=== PATIENT | female | born 1980 | race African-American/Black ===

== ENCOUNTER 2019-05-25 04:37 | Emergency (ER) | payer SELFPAY ==
[~2019-05-25] VITALS: Ht 170.2 cm; Wt 106.6 kg
[~2019-05-25 04:37] MED LIST: HYDROCODONE/APAP 10-325 MG TABLET ONE; ONDANSETRON HCL 4 MG TABLET ONE
[2019-05-25] MEDS ORDERED: SODIUM BICARBONATE 4.2 % (NEUT) 5 ML VIAL TP ONE (05:00)
[2019-05-25] MEDS ORDERED: HYDROCODONE/APAP 10-325 MG TABLET PO ONE (05:00)
[2019-05-25] MEDS ORDERED: TDAP DIPH,PERTUSS,TET VAC/PF 0.5 ML DISP.SYRIN IM ONE ×2 (05:00→05:47)
[2019-05-25] MEDS ORDERED: HYDROMORPHONE 1 MG/1 ML DISP.SYRIN IM ONE (05:00)
[2019-05-25] MEDS ORDERED: ONDANSETRON ODT 4 MG TAB.RAPDIS SL ONE (05:00)
[2019-05-25] MEDS ORDERED: HYDROMORPHONE 2 MG/1 ML DISP.SYRIN ONE (05:00)
[2019-05-25] MEDS ORDERED: CEFTRIAXONE 1 G VIAL IM ONE (05:00)
[2019-05-25] MEDS ORDERED: LIDOCAINE 1%-EPI 1:100,000 20 ML VIAL IJ ONE (05:00)
--- NOTE | 2019-05-25 05:00 | NUR ---
Pt screaming yelling in pain. Dr. Jones made aware.
[2019-05-25] MEDS ORDERED: ONDANSETRON HCL 4 MG TABLET ONE (05:18)
[2019-05-25] MEDS ORDERED: HYDROCODONE/APAP 10-325 MG TABLET ONE (05:18)
[2019-05-25] MEDS ORDERED: CEFTRIAXONE 1 G VIAL ONE (05:47)
--- NOTE | 2019-05-25 05:55 | NUR ---
Pt went down to radiology dept for CT scan. waiver signed.
[2019-05-25] MEDS ORDERED: DIAZEPAM 2 MG TABLET PO ONE (06:15)
[2019-05-25] MEDS ORDERED: ALBUTEROL SULFATE 2.5 MG/3 ML NEBU NEB ONE (06:15)
[2019-05-25] MEDS ORDERED: ALBUTEROL SULFATE 2.5 MG/3 ML NEBU ONE (06:16)
--- NOTE | 2019-05-25 06:26 | NUR ---
Pt is more comfortable. Receiving breathing tx at this time. Pending results of CT scan.
[2019-05-25] MEDS ORDERED: DIAZEPAM 2 MG TABLET ONE (06:29)
--- NOTE | 2019-05-25 06:51 | NUR ---
Patient discharged to home in stable conditon. Written and verbal after care instructions given. Patient verbalizes understanding of instructions. Pt left ER in stable condition via wheelchair accompanied by who will drive pt home. Pt appears in no apparent distress. Vital signs stable. Respirations even + unlabored.
[2019-05-25 06:54] VITALS: BP 135/69
== END 2019-05-25 06:55 | disposition home or self-care (01) ==
LOC: ER 04:43
DX: S31.139A Puncture wound of abdominal wall without foreign body, unspecified quadrant without penetration into peritoneal cavity, initial encounter (principal); S31.119A Laceration without foreign body of abdominal wall, unspecified quadrant without penetration into peritoneal cavity, initial encounter; F17.200 Nicotine dependence, unspecified, uncomplicated; W01.198A Fall on same level from slipping, tripping and stumbling with subsequent striking against other object, initial encounter; Y93.89 Activity, other specified; Y92.89 Other specified places as the place of occurrence of the external cause; Y99.8 Other external cause status
CPT/HCPCS: 12032; 74176; 90471; 90715; 94640; 96372 ×2; 99284; J0696; J1170; J3490 ×2; A4217; A4663; Q0162

== ENCOUNTER 2019-05-25 08:13 | Emergency (ER) | payer SELFPAY ==
[~2019-05-25] VITALS: Ht 170.2 cm; Wt 106.6 kg
--- NOTE | 2019-05-25 08:15 | NUR ---
Admit a 39 yo female pt via w/c, accompanied by with c/o bleeding on the previously drained abdomenal wound in this ER tunnel man. Incission appears clean and intact. Pt is awake, alert and oriented x3.
--- NOTE | 2019-05-25 08:35 | NUR ---
Seen and examined by Dr العلي. Spoken with the . Cleaned up the wound and dressing applied. Wound care education and discharge instruction teaching given to the pt. and with good understanding. Pt c/o pain level 4 but tolerable. Discharged via w/c accompanied by . Condition is stable.
[2019-05-25 08:59] VITALS: BP 125/80
== END 2019-05-25 08:35 | disposition home or self-care (01) ==
LOC: ER 08:13
DX: S31.119D Laceration without foreign body of abdominal wall, unspecified quadrant without penetration into peritoneal cavity, subsequent encounter (principal); F17.200 Nicotine dependence, unspecified, uncomplicated; X58.XXXD Exposure to other specified factors, subsequent encounter
CPT/HCPCS: A4663

== ENCOUNTER 2019-05-31 15:39 | Emergency (ER) | payer SELFPAY ==
[~2019-05-31] VITALS: Ht 170.2 cm; Wt 106.6 kg
[2019-05-31] MEDS ORDERED: NEOMY/BACITRA/POLYMYXIN B OINT UD PACKET TP ONE ×2 (17:45→17:47)
--- NOTE | 2019-05-31 18:00 | NUR ---
PATIENT WAS SEEN BY . WOUND CULTURE OBTAINED THEN WAS CLEANSED AND DRESSED. PATIENT TO RETURN TO ER FOR WOUND CHECK IN 2 DAYS. DC, RX AND FOLLOW UP INSTRUCTIONS GIVEN AND EXPLAINED TO PATIENT WHO STATES SHE UNDERSTANDS ALL INSTRUCTIONS
== END 2019-05-31 18:17 | disposition home or self-care (01) ==
LOC: ER 15:42
DX: S31.119D Laceration without foreign body of abdominal wall, unspecified quadrant without penetration into peritoneal cavity, subsequent encounter (principal); F17.200 Nicotine dependence, unspecified, uncomplicated; X58.XXXD Exposure to other specified factors, subsequent encounter
CPT/HCPCS: 87070; 87077; A4663

== ENCOUNTER 2019-06-04 18:05 | Emergency (ER) | payer MEDICAID ==
[~2019-06-04] VITALS: Ht 170.2 cm; Wt 77.1 kg
[2019-06-04] MEDS ORDERED: SULF1TAB48 PO (18:17)
[2019-06-04] MEDS ORDERED: CEPH250S PO (18:17)
--- NOTE | 2019-06-04 18:23 | NUR ---
39 years old female alert, oriented x4 walking to er for right abdominal fold wound check, no odor small serous drainage noted denies chills fever, pain.
[2019-06-04] MEDS ORDERED: MUPIROCIN 2% OINT 22 GM TUBE ONE (18:55)
[2019-06-04] MEDS ORDERED: MUPIROCIN 2% OINT 22 GM TUBE TP ONE (19:00)
--- NOTE | 2019-06-04 19:05 | NUR ---
wound clean with normal saline tender to touch, bactroban applied, d/c home with instructions after care reviewed understood, prescription given.
== END 2019-06-04 19:07 | disposition home or self-care (01) ==
LOC: ER 18:05
DX: S31.119D Laceration without foreign body of abdominal wall, unspecified quadrant without penetration into peritoneal cavity, subsequent encounter (principal); T81.30XA Disruption of wound, unspecified, initial encounter; J45.909 Unspecified asthma, uncomplicated; F17.200 Nicotine dependence, unspecified, uncomplicated; Z79.899 Other long term (current) drug therapy; X58.XXXD Exposure to other specified factors, subsequent encounter
CPT/HCPCS: A4663

== ENCOUNTER 2019-06-05 22:05 | Emergency (ER) | payer MEDICAID ==
[~2019-06-05] VITALS: Ht 170.2 cm; Wt 79.4 kg
[~2019-06-05 22:05] MED LIST changes: +CEPH250S PO; -HYDROCODONE/APAP 10-325 MG TABLET ONE; -ONDANSETRON HCL 4 MG TABLET ONE; +SULF1TAB48 PO
--- NOTE | 2019-06-05 22:20 | NUR ---
Patient here for abdominal wound check.
--- NOTE | 2019-06-05 22:30 | NUR ---
Dr. Metcalf on bedside for MSE.
[2019-06-05] MEDS ORDERED: MUPIROCIN 2% OINT 22 GM TUBE ONE (22:38)
[2019-06-05] MEDS ORDERED: MUPIROCIN 2% OINT 22 GM TUBE TP ONE (22:45)
--- NOTE | 2019-06-05 22:48 | NUR ---
Patient discharged to home in stable conditon. Written and verbal after care instructions given. Patient verbalizes understanding of instructions. Pt ambulated out of the ER with steady gait. All belongings with pt.
[2019-06-05 22:49] VITALS: BP 108/56
== END 2019-06-05 22:49 | disposition home or self-care (01) ==
LOC: ER 22:07
DX: S31.119D Laceration without foreign body of abdominal wall, unspecified quadrant without penetration into peritoneal cavity, subsequent encounter (principal); J45.909 Unspecified asthma, uncomplicated; F17.200 Nicotine dependence, unspecified, uncomplicated; Z79.2 Long term (current) use of antibiotics; Z79.899 Other long term (current) drug therapy; X58.XXXD Exposure to other specified factors, subsequent encounter
CPT/HCPCS: A4217; A4663

== ENCOUNTER 2019-06-08 12:40 | Emergency (ER) | payer MEDICAID ==
[~2019-06-08] VITALS: Ht 170.2 cm; Wt 79.4 kg
--- NOTE | 2019-06-08 13:23 | NUR ---
PATIENT WAS SEEN BY MD, SHE REMOVED THE SUTURES. STERILE DRESSING APPLIED. DC AND FOLLOW UP INSTRUCTIONS GIVEN AND EXPLAINED TO PATIENT WHO STATES SHE UNDERSTANDS ALL INSTRUCTIONS.
== END 2019-06-08 13:26 | disposition home or self-care (01) ==
LOC: ER 12:40
DX: T81.33XA Disruption of traumatic injury wound repair, initial encounter (principal); J45.909 Unspecified asthma, uncomplicated; F17.200 Nicotine dependence, unspecified, uncomplicated; Z79.2 Long term (current) use of antibiotics; Z79.899 Other long term (current) drug therapy
CPT/HCPCS: A4663

== ENCOUNTER 2020-05-09 18:24 | Emergency (ER) | payer SELFPAY ==
[~2020-05-09] VITALS: Ht 170.2 cm; Wt 108.9 kg
--- NOTE | 2020-05-09 18:30 | NUR ---
Paged dr Wilkins.
--- NOTE | 2020-05-09 18:45 | NUR ---
Patient was seen by Dr Metcalf
--- NOTE | 2020-05-09 19:03 | NUR ---
hand off report given to Naveen QUIÑONES
[2020-05-09] MEDS ORDERED: CEFTRIAXONE 1 G in IV DEXTROSE 5% 50 ML IV ONE (19:15)
[2020-05-09] MEDS ORDERED: VANCOMYCIN 1G/D5W 200 ML PIGGYBACK IV ONE (19:15)
[2020-05-09] MEDS ORDERED: VANCOMYCIN IV 200 ML ONE (19:16)
[2020-05-09] MEDS ORDERED: CEFTRIAXONE /D5W 50ML IVPB **ER PYXIS IV ONE (19:17)
[2020-05-09] MEDS ORDERED: MUPIROCIN 2% OINT 22 GM TUBE ONE (21:29)
[2020-05-09] MEDS ORDERED: MUPIROCIN 2% OINT 22 GM TUBE TP ONE (21:30)
--- NOTE | 2020-05-09 22:15 | NUR ---
Changed piccline dressing as per protocol as patient requested.
--- NOTE | 2020-05-09 22:37 | NUR ---
Patient discharged to home in stable condition. Written and verbal after care instructions given. Patient verbalizes understanding of instructions. Stressed follow up or return to ER for worsening s/s.
[2020-05-09 22:39] VITALS: BP 140/77
== END 2020-05-09 22:40 | disposition home or self-care (01) ==
LOC: ER 18:24
DX: L08.9 Local infection of the skin and subcutaneous tissue, unspecified (principal); L97.519 Non-pressure chronic ulcer of other part of right foot with unspecified severity; J45.909 Unspecified asthma, uncomplicated; Z98.84 Bariatric surgery status
CPT/HCPCS: 87070; 96365; 96366; 96367; 99284; J0696; J3370; A4663

== ENCOUNTER 2025-06-07 00:38 | Inpatient (IN) | payer BC ==
[~2025-06-07] VITALS: Ht 165.1 cm; Wt 114.8 kg
[2025-06-07] VITALS (40 sets, daily range): BP systolic 75–177; BP diastolic 47–114; TEMP 97.3–98.6; O2SAT 75–100
[2025-06-07] MEDS: ALBUTEROL SULFATE 2.5 MG/3 ML NEBU NEB ONE ×4 (00:45→11:04)
[2025-06-07] MEDS ORDERED: ALBUTEROL SULFATE 2.5 MG/3 ML NEBU ONE ×2 (00:50→02:51)
[2025-06-07] MEDS: IPRATROPIUM BROMIDE 0.5 MG/2.5 ML NEBU NEB ONE ×2 (00:50→11:03)
[2025-06-07] MEDS ORDERED: IPRATROPIUM BROMIDE 0.5 MG/2.5 ML NEBU ONE ×2 (00:50→02:52)
[2025-06-07 00:53] LABS: PLATELET COUNT (AUTO) 251 K/uL (179-408); RED BLOOD CELL COUNT(AUTO) 3.88 MIL/uL (3.63-4.92); RED CELL DISTRIBUTION WIDTH 17.8 % (12.3-17.7); WHITE BLOOD COUNT (AUTO) 11.5 K/uL (3.8-11.8)
[2025-06-07] MEDS ORDERED: MAGNESIUM SULFATE/D5W 200 ML ONE (00:55)
[2025-06-07] MEDS: MAGNESIUM SULFATE 2 GM in IV DEXTROSE 5% 100 ML IV ONE (00:58)
[2025-06-07 01:00] LABS: CREATININE 0.6 mg/dL (0.6-1.3); SODIUM SERUM 142 mmol/L (136-145); UREA NITROGEN, BLOOD 12 mg/dL (7-18)
[2025-06-07] MEDS: IV NORMAL SALINE 1000 ML BAG IV ONE (01:02)
[2025-06-07 01:06] LABS: ASPARTATE AMINOTRANSFERASE 11 U/L (15-37); TOTAL PROTEIN, SERUM 8.2 g/dL (6.4-8.2)
[2025-06-07] MEDS ORDERED: EPINEPHRINE 1:10,000 1 MG/10 ML DISP.SYRIN ONE ×2 (01:06→03:43)
[2025-06-07] MEDS: EPINEPHRINE 1 MG/1 ML 30 ML VIAL IM ONE ×2 (01:15→04:28)
[2025-06-07] MEDS ORDERED: ALBU8.5H8 IH (02:05)
[2025-06-07] MEDS ORDERED: REMEDY ESSENTIAL ZINC PASTE 113 GM TP PRN (02:30)
[2025-06-07] MEDS ORDERED: MAGNESIUM HYDROXIDE 30 ML LIQUID UDC PO PRN (02:30)
[2025-06-07] MEDS ORDERED: POTASSIUM CHLORIDE 20 MEQ TAB.PRT.SR ONE (02:32)
[2025-06-07] MEDS: POTASSIUM CHLORIDE 20 MEQ TAB.PRT.SR PO ONE (02:36)
[2025-06-07] MEDS: IPRATROPIUM BROMIDE 0.5 MG/2.5 ML NEBU NEB PRN (02:44)
[2025-06-07] MEDS ORDERED: MAGNESIUM SULFATE/D5W 100 ML ONE (03:43)
[2025-06-07] MEDS ORDERED: DEXAMETHASONE SOD PHOSPHATE 10 MG INJ ONE (03:43)
[2025-06-07] MEDS: MAGNESIUM SULFATE/D5W 100 ML IV ONE (03:48)
[2025-06-07] MEDS: DEXAMETHASONE SOD PHOSPHATE 4 MG INJ IV ONE (03:48)
[2025-06-07] MEDS ORDERED: ROCURONIUM BROMIDE 50 MG/5 ML VIAL ONE (04:15)
[2025-06-07] MEDS ORDERED: ETOMIDATE 20 MG/10 ML VIAL ONE (04:15)
[2025-06-07] MEDS ORDERED: EPINEPHRINE-PF 1:1000 1 MG/ML AMPUL/VIAL ONE (04:19)
[2025-06-07 05:25] LABS: *URINE HCG, QUAL NEGATIVE (NEGATIVE)
[2025-06-07] MEDS ORDERED: DOSING PER PHARMACY-ENOXAPARIN XX PRN (06:15)
[2025-06-07 06:21] LABS: PLATELET COUNT (AUTO) 243 K/uL (179-408); RED BLOOD CELL COUNT(AUTO) 3.83 MIL/uL (3.63-4.92); RED CELL DISTRIBUTION WIDTH 17.6 % (12.3-17.7); WHITE BLOOD COUNT (AUTO) 10.8 K/uL (3.8-11.8)
[2025-06-07] MEDS ORDERED: ENOXAPARIN SODIUM 120 MG/0.8 ML SYRINGE SQ ONE (06:30)
[2025-06-07 06:33] LABS: CREATININE 0.7 mg/dL (0.6-1.3); SODIUM SERUM 140.0 mmol/L (136-145); UREA NITROGEN, BLOOD 12.0 mg/dL (7-18)
[2025-06-07] MEDS: PANTOPRAZOLE SODIUM 40 MG TABLET.DR PO SCH (07:28)
[2025-06-07] MEDS: LEVALBUTEROL HCL NEB 0.63 MG/3 ML NEBU NEB SCH (07:30)
[2025-06-07] MEDS: IPRATROPIUM BROMIDE 0.5 MG/2.5 ML NEBU NEB SCH (07:31)
[2025-06-07] MEDS: ACETAMINOPHEN 500 MG TABLET PO ONE (08:05)
[2025-06-07] MEDS: POTASSIUM CHLORIDE 50 ML IV SCH (08:22)
[2025-06-07] MEDS: ENOXAPARIN SODIUM 120 MG/0.8 ML SYRINGE SQ SCH (08:30)
[2025-06-07] MEDS ORDERED: ENOXAPARIN SODIUM 120 MG/0.8 ML SYRINGE SQ SCH (09:00)
[2025-06-07] MEDS ORDERED: MAGNESIUM SULFATE/D5W 100 ML IV SCH (10:30)
[2025-06-07] MEDS: KETAMINE HCL 500 MG/10 ML INJ IV ONE (10:51)
[2025-06-07] MEDS: PROPOFOL 100 ML IV PRN ×2 (11:13→12:29)
[2025-06-07] MEDS ORDERED: NOREPINEPHRINE 8MG/NS 250ML 250 ML IV PRN (11:15)
[2025-06-07] MEDS ORDERED: PHENYLEPHRINE IV 50 MG in IV NORMAL SALINE 245 ML IV PRN (11:15)
[2025-06-07] MEDS: PROPOFOL 100 ML ONE (11:17)
[2025-06-07 11:29] LABS: ABG BASE EXCESS -0.7 mmol/L (-2.0-3.0); ABG HCO3 29.1 mmol/L (21.0-28.0); ABG PCO2 74.9 mmHg (32.0-45.0); ABG PH 7.207 (7.350-7.450); ABG PO2 92.9 mmHg (83.0-108.0); ABG SITE RIGHT RADIAL; ABG TOTAL HEMOGLOBIN 13.3 G/dL (12.0-16.0); AaDO2 95.1 mmHg; FIO2 60.0 %; SET RATE, BG 20.0
[2025-06-07 11:29] LABS: ABG BASE EXCESS -0.4 mmol/L (-2.0-3.0); ABG HCO3 27.1 mmol/L (21.0-28.0); ABG PCO2 57.4 mmHg (32.0-45.0); ABG PH 7.292 (7.350-7.450); ABG PO2 58.2 mmHg (83.0-108.0); ABG SITE LEFT RADIAL; ABG TOTAL HEMOGLOBIN 12.5 G/dL (12.0-16.0); AaDO2 86.7 mmHg; FIO2 44.0 %
[2025-06-07 11:29] LABS: FIO2 60.0 %
[2025-06-07] MEDS: IV NS 1000 ML 1,000 ML IV PRN (11:46)
[2025-06-07] MEDS: VANCOMYCIN IV 1,000 MG in IV DEXTROSE 5% 250 ML IV SCH (11:47)
[2025-06-07] MEDS ORDERED: MIDAZOLAM HCL 50 MG in IV NORMAL SALINE 40 ML IV PRN (12:30)
[2025-06-07 13:03] LABS: ABG BASE EXCESS -2.6 mmol/L (-2.0-3.0); ABG HCO3 28.1 mmol/L (21.0-28.0); ABG PCO2 84.3 mmHg (32.0-45.0); ABG PH 7.141 (7.350-7.450); ABG PO2 80.8 mmHg (83.0-108.0); ABG SITE RIGHT RADIAL; ABG TOTAL HEMOGLOBIN 12.1 G/dL (12.0-16.0); AaDO2 91.5 mmHg; PEEP,BG 5.0 cmH20; SET RATE, BG 24.0; VT, ABG 500 mL
[2025-06-07] MEDS: MIDAZOLAM HCL 50 MG in IV NORMAL SALINE 40 ML IV PRN (13:20)
[2025-06-07] MEDS ORDERED: FLUT1BLS6 IH (14:22)
[2025-06-07] MEDS: PANTOPRAZOLE SODIUM 40 MG VIAL IV SCH (20:28)
[2025-06-07 22:21] LABS: ABG BASE EXCESS -2.5 mmol/L (-2.0-3.0); ABG HCO3 26.3 mmol/L (21.0-28.0); ABG PCO2 64.7 mmHg (32.0-45.0); ABG PH 7.227 (7.350-7.450); ABG PO2 142.3 mmHg (83.0-108.0); ABG SITE LEFT RADIAL; ABG TOTAL HEMOGLOBIN 12.9 G/dL (12.0-16.0); AaDO2 98.3 mmHg; FIO2 60.0 %; PEEP,BG 5.0 cmH20; SET RATE, BG 28.0; VT, ABG 400 mL
[2025-06-08] VITALS (48 sets, daily range): BP systolic 128–175; BP diastolic 62–111; TEMP 97.5–100.6; O2SAT 93–100
[2025-06-08 05:05] LABS: PLATELET COUNT (AUTO) 241 K/uL (179-408); RED BLOOD CELL COUNT(AUTO) 3.87 MIL/uL (3.63-4.92); RED CELL DISTRIBUTION WIDTH 18.0 % (12.3-17.7); WHITE BLOOD COUNT (AUTO) 17.4 K/uL (3.8-11.8)
[2025-06-08 05:20] LABS: ASPARTATE AMINOTRANSFERASE 24 U/L (15-37); CREATININE 0.9 mg/dL (0.6-1.3); SODIUM SERUM 134 mmol/L (136-145); TOTAL PROTEIN, SERUM 7.7 g/dL (6.4-8.2); UREA NITROGEN, BLOOD 22 mg/dL (7-18)
[2025-06-08 05:45] LABS: ABG BASE EXCESS 0.5 mmol/L (-2.0-3.0); ABG HCO3 28.0 mmol/L (21.0-28.0); ABG PCO2 58.2 mmHg (32.0-45.0); ABG PH 7.300 (7.350-7.450); ABG PO2 119.0 mmHg (83.0-108.0); ABG SITE RIGHT RADIAL; ABG TOTAL HEMOGLOBIN 12.8 G/dL (12.0-16.0); AaDO2 97.9 mmHg; FIO2 50.0 %; PEEP,BG 5.0 cmH20; SET RATE, BG 28.0; VT, ABG 450 mL
[2025-06-08 05:56] LABS: LYMPHOCYTES % (MANUAL) 9 % (20-40); MONOCYTES % (MANUAL) 3 % (2-10); NEUTROPHILS % (MANUAL) 88 % (42-75); PLATELET ESTIMATE ADEQUATE
[2025-06-08] MEDS ORDERED: PANTOPRAZOLE SODIUM 40 MG VIAL IV SCH (09:00)
[2025-06-08] MEDS: ONDANSETRON 4 MG/2 ML VIAL IV PRN (12:32)
[2025-06-08] MEDS: METOPROLOL TARTRATE 5 MG/5 ML VIAL IVP ONE ×2 (12:44→17:02)
[2025-06-08] MEDS: VANCOMYCIN IV 1,000 MG in IV DEXTROSE 5% 250 ML IV SCH (13:00)
[2025-06-08] MEDS: METRONIDAZOLE 500 MG/NS 100ML 500 MG in PREMIXED 1 EACH IV SCH (14:02)
[2025-06-08] MEDS: ACETAMINOPHEN 650 MG SUPP.RECT RC PRN (14:36)
[2025-06-08] MEDS: METOCLOPRAMIDE HCL 10 MG/2 ML VIAL IV SCH (17:01)
[2025-06-08] MEDS: PANTOPRAZOLE SODIUM 40 MG VIAL IV SCH (21:07)
[2025-06-08] MEDS: CEFEPIME (MAXEPIME) 1 G in IV DEXTROSE 5% 50 ML IV SCH (21:08)
[2025-06-09] VITALS (47 sets, daily range): BP systolic 117–166; BP diastolic 58–105; TEMP 98.5–100.2; O2SAT 89–100
[2025-06-09 04:47] LABS: PLATELET COUNT (AUTO) 238 K/uL (179-408); RED BLOOD CELL COUNT(AUTO) 3.91 MIL/uL (3.63-4.92); RED CELL DISTRIBUTION WIDTH 18.4 % (12.3-17.7); WHITE BLOOD COUNT (AUTO) 18.7 K/uL (3.8-11.8)
[2025-06-09 04:52] LABS: CREATININE 0.9 mg/dL (0.6-1.3); SODIUM SERUM 131.0 mmol/L (136-145); UREA NITROGEN, BLOOD 25.0 mg/dL (7-18)
[2025-06-09 04:58] LABS: ASPARTATE AMINOTRANSFERASE 17 U/L (15-37); TOTAL PROTEIN, SERUM 7.4 g/dL (6.4-8.2)
[2025-06-09 05:30] LABS: ABG BASE EXCESS 2.6 mmol/L (-2.0-3.0); ABG HCO3 28.8 mmol/L (21.0-28.0); ABG PCO2 51.5 mmHg (32.0-45.0); ABG PH 7.366 (7.350-7.450); ABG PO2 94.9 mmHg (83.0-108.0); ABG SITE RIGHT RADIAL; ABG TOTAL HEMOGLOBIN 13.1 G/dL (12.0-16.0); AaDO2 96.9 mmHg; FIO2 50.0 %; PEEP,BG 5.0 cmH20; SET RATE, BG 28.0; VT, ABG 450 mL
[2025-06-09] MEDS ORDERED: ENOXAPARIN SODIUM 40 MG/0.4 ML DISP.SYRIN SQ SCH (09:00)
[2025-06-09] MEDS: FENTANYL CITRATE/PF 1,000 MCG in IV NORMAL SALINE 80 ML IV PRN (10:28)
[2025-06-09 10:43] LABS: *BILIRUBIN,URIN NEGATIVE (NEGATIVE); *BLOOD, URINE 3+ (NEGATIVE); *COLOR,URINE YELLOW (YELLOW); *KETONES,URINE TRACE (NEGATIVE); *PROTEIN,URINE 1+ (NEGATIVE); *UROBILINOGEN,URINE 0.2 E.U./dl (NORMAL); LEUKOCYTE ESTERASE ,URINE NEGATIVE (NEGATIVE); NITRITE, URINE NEGATIVE (NEGATIVE); UGLUCOSE NEGATIVE (NEGATIVE)
[2025-06-09 10:44] LABS: *CLARITY,URINE SLIGHTLY HAZY (CLEAR)
[2025-06-09 10:45] LABS: SQUAMOUS EPITHELIAL CELL,UR MODERATE /HPF (NONE SEEN); URINE AMORPHOUS URATE FEW /HPF
[2025-06-09 10:57] LABS: *AMPHETAMINE, URINE NEGATIVE (NEGATIVE); *BARBITURATE, URINE NEGATIVE (NEGATIVE); *BENZODIAZEPINE, URINE POSITIVE (NEGATIVE); *CANNABINOID, URINE NEGATIVE (NEGATIVE); *COCCAINE, URINE POSITIVE (NEGATIVE); *OPIATE, URINE POSITIVE (NEGATIVE); *PHENCYCLIDINE SCREEN,URINE NEGATIVE (NEGATIVE); FENTANYL, URINE POSITIVE (NEGATIVE)
[2025-06-09] MEDS ORDERED: IOHEXOL 350 100 ML INFUS..BTL ONE (13:36)
[2025-06-09 14:14] LABS: *CREATININE,URINE 69.6 mg/dL (30-125); *SODIUM RNDM,URINE 75.0 mmol/L (40-220); *URINE TOTAL PROTEIN RANDOM 59.9 mg/dL (<150/24HR)
[2025-06-10] VITALS (41 sets, daily range): BP systolic 137–178; BP diastolic 71–110; TEMP 96.9–100.8; O2SAT 88–97
[2025-06-10 06:07] LABS: PLATELET COUNT (AUTO) 199 K/uL (179-408); RED BLOOD CELL COUNT(AUTO) 3.89 MIL/uL (3.63-4.92); RED CELL DISTRIBUTION WIDTH 18.1 % (12.3-17.7); WHITE BLOOD COUNT (AUTO) 15.1 K/uL (3.8-11.8)
[2025-06-10 06:20] LABS: ABG BASE EXCESS 5.0 mmol/L (-2.0-3.0); ABG HCO3 31.5 mmol/L (21.0-28.0); ABG PCO2 54.4 mmHg (32.0-45.0); ABG PH 7.380 (7.350-7.450); ABG PO2 88.9 mmHg (83.0-108.0); ABG SITE RIGHT RADIAL; ABG TOTAL HEMOGLOBIN 12.9 G/dL (12.0-16.0); AaDO2 96.5 mmHg; FIO2 40.0 %; PEEP,BG 5.0 cmH20; SET RATE, BG 20.0; VT, ABG 450 mL
[2025-06-10 06:20] LABS: CREATININE 0.8 mg/dL (0.6-1.3); SODIUM SERUM 133.0 mmol/L (136-145); UREA NITROGEN, BLOOD 28.0 mg/dL (7-18)
[2025-06-10 06:22] LABS: ASPARTATE AMINOTRANSFERASE 8 U/L (15-37); TOTAL PROTEIN, SERUM 7.0 g/dL (6.4-8.2)
[2025-06-10] MEDS ORDERED: PRECEDEX 400 MCG/100 ML BOTTLE 100 ML IV PRN (08:30)
[2025-06-10] MEDS: LORAZEPAM 2 MG/1 ML VIAL IV ONE (08:45)
[2025-06-10] MEDS: LORAZEPAM 2 MG/1 ML VIAL IV PRN (13:41)
[2025-06-10] MEDS: ENOXAPARIN SODIUM 40 MG/0.4 ML DISP.SYRIN SQ SCH (16:25)
[2025-06-10] MEDS: JEVITY 1.2 1000 ML LIQUID GT PRN (18:34)
[2025-06-11] VITALS (46 sets, daily range): BP systolic 123–166; BP diastolic 64–104; TEMP 98.9–99.9; O2SAT 90–100
[2025-06-11 05:12] LABS: PLATELET COUNT (AUTO) 211 K/uL (179-408); RED BLOOD CELL COUNT(AUTO) 3.99 MIL/uL (3.63-4.92); RED CELL DISTRIBUTION WIDTH 17.9 % (12.3-17.7); WHITE BLOOD COUNT (AUTO) 13.0 K/uL (3.8-11.8)
[2025-06-11 05:18] LABS: CREATININE 0.8 mg/dL (0.6-1.3); SODIUM SERUM 139.0 mmol/L (136-145); UREA NITROGEN, BLOOD 29.0 mg/dL (7-18)
[2025-06-11 05:42] LABS: ABG BASE EXCESS 6.4 mmol/L (-2.0-3.0); ABG HCO3 31.5 mmol/L (21.0-28.0); ABG PCO2 47.4 mmHg (32.0-45.0); ABG PH 7.441 (7.350-7.450); ABG PO2 92.2 mmHg (83.0-108.0); ABG SITE RIGHT RADIAL; ABG TOTAL HEMOGLOBIN 12.9 G/dL (12.0-16.0); AaDO2 97.2 mmHg; FIO2 40.0 %; PEEP,BG 5.0 cmH20; SET RATE, BG 20.0; VT, ABG 450 mL
[2025-06-11] MEDS: ACETAMINOPHEN 325 MG TABLET PO PRN (09:09)
[2025-06-11 10:03] LABS: ABG BASE EXCESS 6.9 mmol/L (-2.0-3.0); ABG HCO3 32.6 mmol/L (21.0-28.0); ABG PCO2 50.3 mmHg (32.0-45.0); ABG PH 7.429 (7.350-7.450); ABG PO2 75.3 mmHg (83.0-108.0); ABG TOTAL HEMOGLOBIN 13.3 G/dL (12.0-16.0); AaDO2 95.3 mmHg; FIO2 40.0 %; PEEP,BG 5.0 cmH20
[2025-06-12] VITALS (47 sets, daily range): BP systolic 120–161; BP diastolic 67–104; TEMP 97.8–99.8; O2SAT 86–99
[2025-06-12 05:04] LABS: PLATELET COUNT (AUTO) 207 K/uL (179-408); RED BLOOD CELL COUNT(AUTO) 4.21 MIL/uL (3.63-4.92); RED CELL DISTRIBUTION WIDTH 18.3 % (12.3-17.7); WHITE BLOOD COUNT (AUTO) 11.0 K/uL (3.8-11.8)
[2025-06-12 05:12] LABS: CREATININE 0.7 mg/dL (0.6-1.3); SODIUM SERUM 143.0 mmol/L (136-145); UREA NITROGEN, BLOOD 33.0 mg/dL (7-18)
[2025-06-12 06:17] LABS: ABG BASE EXCESS 3.6 mmol/L (-2.0-3.0); ABG HCO3 28.5 mmol/L (21.0-28.0); ABG PCO2 44.3 mmHg (32.0-45.0); ABG PH 7.426 (7.350-7.450); ABG PO2 114.1 mmHg (83.0-108.0); ABG SITE RIGHT RADIAL; ABG TOTAL HEMOGLOBIN 12.9 G/dL (12.0-16.0); AaDO2 98.2 mmHg; FIO2 40.0 %; PEEP,BG 5.0 cmH20; SET RATE, BG 20.0; VT, ABG 450 mL
[2025-06-12] MEDS ORDERED: HYDROMORPHONE 1 MG/1 ML DISP.SYRIN IV PRN (11:00)
[2025-06-13] VITALS (46 sets, daily range): BP systolic 109–155; BP diastolic 60–100; TEMP 97.8–98.8; O2SAT 88–100
[2025-06-13 05:12] LABS: PLATELET COUNT (AUTO) 208 K/uL (179-408); RED BLOOD CELL COUNT(AUTO) 4.11 MIL/uL (3.63-4.92); RED CELL DISTRIBUTION WIDTH 17.7 % (12.3-17.7); WHITE BLOOD COUNT (AUTO) 9.8 K/uL (3.8-11.8)
[2025-06-13 05:26] LABS: CREATININE 0.7 mg/dL (0.6-1.3); SODIUM SERUM 140.0 mmol/L (136-145); UREA NITROGEN, BLOOD 33.0 mg/dL (7-18)
[2025-06-13] MEDS: PANTOPRAZOLE SODIUM 40 MG VIAL IV SCH (08:45)
[2025-06-14] VITALS (54 sets, daily range): BP systolic 105–189; BP diastolic 63–98; TEMP 98–100; O2SAT 92–100
[2025-06-14 05:13] LABS: PLATELET COUNT (AUTO) 196 K/uL (179-408); RED BLOOD CELL COUNT(AUTO) 3.96 MIL/uL (3.63-4.92); RED CELL DISTRIBUTION WIDTH 17.9 % (12.3-17.7); WHITE BLOOD COUNT (AUTO) 10.3 K/uL (3.8-11.8)
[2025-06-14 05:25] LABS: CREATININE 0.6 mg/dL (0.6-1.3); SODIUM SERUM 143 mmol/L (136-145); UREA NITROGEN, BLOOD 33 mg/dL (7-18)
[2025-06-14 09:09] LABS: ABG BASE EXCESS 3.9 mmol/L (-2.0-3.0); ABG HCO3 28.3 mmol/L (21.0-28.0); ABG PCO2 42.0 mmHg (32.0-45.0); ABG PH 7.447 (7.350-7.450); ABG PO2 65.2 mmHg (83.0-108.0); ABG SITE LEFT RADIAL; ABG TOTAL HEMOGLOBIN 12.8 G/dL (12.0-16.0); AaDO2 93.6 mmHg; FIO2 30.0 %; PEEP,BG 5.0 cmH20; SET RATE, BG 0.0
[2025-06-14 12:44] LABS: ABG BASE EXCESS 5.4 mmol/L (-2.0-3.0); ABG HCO3 29.5 mmol/L (21.0-28.0); ABG PCO2 41.5 mmHg (32.0-45.0); ABG PH 7.470 (7.350-7.450); ABG PO2 56.0 mmHg (83.0-108.0); ABG SITE RIGHT RADIAL; ABG TOTAL HEMOGLOBIN 13.3 G/dL (12.0-16.0); AaDO2 90.9 mmHg; FIO2 50.0 %; FLOW, BLOOD GAS 8.00 L/min (0.00-30.00)
[2025-06-14] MEDS: ALBUTEROL SULFATE 2.5 MG/3 ML NEBU NEB PRN (23:22)
[2025-06-15] VITALS (44 sets, daily range): BP systolic 134–175; BP diastolic 72–104; TEMP 97.9–100.1; O2SAT 92–99
[2025-06-15 05:18] LABS: PLATELET COUNT (AUTO) 217 K/uL (179-408); RED BLOOD CELL COUNT(AUTO) 4.33 MIL/uL (3.63-4.92); RED CELL DISTRIBUTION WIDTH 17.5 % (12.3-17.7); WHITE BLOOD COUNT (AUTO) 17.1 K/uL (3.8-11.8)
[2025-06-15 05:28] LABS: CREATININE 0.7 mg/dL (0.6-1.3); SODIUM SERUM 143.0 mmol/L (136-145); UREA NITROGEN, BLOOD 28.0 mg/dL (7-18)
[2025-06-15 06:05] LABS: ABG BASE EXCESS 4.6 mmol/L (-2.0-3.0); ABG HCO3 27.8 mmol/L (21.0-28.0); ABG PCO2 36.7 mmHg (32.0-45.0); ABG PH 7.497 (7.350-7.450); ABG PO2 82.6 mmHg (83.0-108.0); ABG SITE RIGHT RADIAL; ABG TOTAL HEMOGLOBIN 13.8 G/dL (12.0-16.0); AaDO2 96.9 mmHg; FIO2 70.0 %; FLOW, BLOOD GAS 40.00 L/min (0.00-30.00)
[2025-06-15] MEDS: POTASSIUM CHLORIDE 50 ML IV SCH (09:32)
[2025-06-15] MEDS: AMLODIPINE 5 MG TABLET PO SCH (09:33)
[2025-06-15] MEDS: LOSARTAN POTASSIUM 50 MG TABLET PO SCH (09:33)
[2025-06-15] MEDS: POTASSIUM CHLORIDE 20 MEQ POWDER PACKET GT ONE (11:49)
[2025-06-15] MEDS: IV NORMAL SALINE 250 ML BAG IV ONE (16:17)
[2025-06-15] MEDS: CEFTRIAXONE 500 MG in IV DEXTROSE 5% 50 ML IV SCH (17:26)
[2025-06-15] MEDS: METRONIDAZOLE 500 MG TABLET PO SCH (21:59)
[2025-06-16] VITALS (41 sets, daily range): BP systolic 110–174; BP diastolic 65–123; TEMP 98.6–99.6; O2SAT 92–99
[2025-06-16 12:50] LABS: ABG BASE EXCESS 0.1 mmol/L (-2.0-3.0); ABG HCO3 21.8 mmol/L (21.0-28.0); ABG PCO2 28.2 mmHg (32.0-45.0); ABG PH 7.507 (7.350-7.450); ABG PO2 68.7 mmHg (83.0-108.0); ABG TOTAL HEMOGLOBIN 15.0 G/dL (12.0-16.0); AaDO2 95.4 mmHg; FIO2 65.0 %; FLOW, BLOOD GAS 40.00 L/min (0.00-30.00)
[2025-06-16] MEDS: HYDROMORPHONE 1 MG/1 ML DISP.SYRIN IV PRN (13:44)
[2025-06-16] MEDS ORDERED: HALOPERIDOL LACTATE 5 MG/1 ML VIAL IV PRN (15:00)
[2025-06-16 15:17] LABS: PLATELET COUNT (AUTO) 212 K/uL (179-408); RED BLOOD CELL COUNT(AUTO) 4.58 MIL/uL (3.63-4.92); RED CELL DISTRIBUTION WIDTH 17.7 % (12.3-17.7); WHITE BLOOD COUNT (AUTO) 18.2 K/uL (3.8-11.8)
[2025-06-16] MEDS: IV NORMAL SALINE 250 ML IV ONE (15:17)
[2025-06-16 15:27] LABS: CREATININE 0.7 mg/dL (0.6-1.3); SODIUM SERUM 139.0 mmol/L (136-145); UREA NITROGEN, BLOOD 35.0 mg/dL (7-18)
[2025-06-16 20:15] LABS: *BILIRUBIN,URIN 1+ (NEGATIVE); *BLOOD, URINE 3+ (NEGATIVE); *COLOR,URINE YELLOW (YELLOW); *KETONES,URINE NEGATIVE (NEGATIVE); *PROTEIN,URINE 1+ (NEGATIVE); *UROBILINOGEN,URINE 0.2 E.U./dl (NORMAL); LEUKOCYTE ESTERASE ,URINE NEGATIVE (NEGATIVE); NITRITE, URINE NEGATIVE (NEGATIVE); UGLUCOSE NEGATIVE (NEGATIVE)
[2025-06-16 20:21] LABS: *CLARITY,URINE SLIGHTLY HAZY (CLEAR)
[2025-06-16 20:26] LABS: SQUAMOUS EPITHELIAL CELL,UR FEW /HPF (NONE SEEN)
[2025-06-17] VITALS (36 sets, daily range): BP systolic 110–152; BP diastolic 62–100; TEMP 98.6–99.6; O2SAT 92–100
[2025-06-17 06:01] LABS: CREATININE 0.7 mg/dL (0.6-1.3); SODIUM SERUM 139.0 mmol/L (136-145); UREA NITROGEN, BLOOD 37.0 mg/dL (7-18)
[2025-06-17 06:05] LABS: PLATELET COUNT (AUTO) 201 K/uL (179-408); RED BLOOD CELL COUNT(AUTO) 4.56 MIL/uL (3.63-4.92); RED CELL DISTRIBUTION WIDTH 17.5 % (12.3-17.7); WHITE BLOOD COUNT (AUTO) 19.3 K/uL (3.8-11.8)
[2025-06-17] MEDS: ERYTHROMYCIN ETHYLSUCC 200 MG/5 ML SUSPENSION 100ML PO SCH (13:32)
[2025-06-17] MEDS ORDERED: MINERAL OIL/PETROLAT OPHT OINT 3.5 GM TUBE EACHEYE PRN (17:45)
[2025-06-17] MEDS ORDERED: POLYVINYL ALCOHOL OPHT DROPS 15 ML BOTTLE EACHEYE PRN (18:00)
[2025-06-18] VITALS (35 sets, daily range): BP systolic 99–144; BP diastolic 58–96; TEMP 98.7–99.3; O2SAT 92–100
[2025-06-18 05:37] LABS: PLATELET COUNT (AUTO) 203 K/uL (179-408); RED BLOOD CELL COUNT(AUTO) 4.28 MIL/uL (3.63-4.92); RED CELL DISTRIBUTION WIDTH 17.5 % (12.3-17.7); WHITE BLOOD COUNT (AUTO) 16.1 K/uL (3.8-11.8)
[2025-06-18 05:48] LABS: CREATININE 0.6 mg/dL (0.6-1.3); SODIUM SERUM 139 mmol/L (136-145); UREA NITROGEN, BLOOD 31 mg/dL (7-18)
[2025-06-19] VITALS (29 sets, daily range): BP systolic 106–143; BP diastolic 60–108; TEMP 97.5–100.1; O2SAT 92–100
[2025-06-19 06:27] LABS: CREATININE 0.7 mg/dL (0.6-1.3); SODIUM SERUM 141.0 mmol/L (136-145); UREA NITROGEN, BLOOD 35.0 mg/dL (7-18)
[2025-06-19 06:44] LABS: PLATELET COUNT (AUTO) 201 K/uL (179-408); RED BLOOD CELL COUNT(AUTO) 4.44 MIL/uL (3.63-4.92); RED CELL DISTRIBUTION WIDTH 16.7 % (12.3-17.7); WHITE BLOOD COUNT (AUTO) 15.3 K/uL (3.8-11.8)
[2025-06-20] VITALS (11 sets, daily range): BP systolic 103–119; BP diastolic 52–68; TEMP 98.2–98.9; O2SAT 93–100
[2025-06-20 07:12] LABS: PLATELET COUNT (AUTO) 210 K/uL (179-408); RED BLOOD CELL COUNT(AUTO) 4.32 MIL/uL (3.63-4.92); RED CELL DISTRIBUTION WIDTH 16.7 % (12.3-17.7); WHITE BLOOD COUNT (AUTO) 17.6 K/uL (3.8-11.8)
[2025-06-20 07:31] LABS: CREATININE 1.1 mg/dL (0.6-1.3); SODIUM SERUM 140.0 mmol/L (136-145); UREA NITROGEN, BLOOD 41.0 mg/dL (7-18)
[2025-06-20] MEDS: POTASSIUM CHLORIDE 10 MEQ TAB.PRT.SR PO ONE (12:02)
[2025-06-20] MEDS ORDERED: HALOPERIDOL LACTATE 5 MG/1 ML VIAL IM PRN (13:45)
[2025-06-20] MEDS: NICOTINE 21 MG/24HR PATCH TD SCH (16:42)
[2025-06-21] VITALS (14 sets, daily range): BP systolic 96–126; BP diastolic 48–73; TEMP 97.6–99.1; O2SAT 93–99
[2025-06-21 07:26] LABS: PLATELET COUNT (AUTO) 178 K/uL (179-408); RED BLOOD CELL COUNT(AUTO) 3.87 MIL/uL (3.63-4.92); RED CELL DISTRIBUTION WIDTH 17.1 % (12.3-17.7); WHITE BLOOD COUNT (AUTO) 14.7 K/uL (3.8-11.8)
[2025-06-21 07:48] LABS: CREATININE 1.0 mg/dL (0.6-1.3); SODIUM SERUM 145.0 mmol/L (136-145); UREA NITROGEN, BLOOD 39.0 mg/dL (7-18)
[2025-06-21] MEDS: POTASSIUM CHLORIDE 20 MEQ POWDER PACKET PO ONE (09:22)
[2025-06-21] MEDS: PANTOPRAZOLE SODIUM 40 MG TABLET.DR PO SCH (17:39)
[2025-06-21] MEDS: AMLODIPINE 5 MG TABLET PO SCH (20:14)
[2025-06-22] VITALS (22 sets, daily range): BP systolic 89–125; BP diastolic 52–76; TEMP 97.6–98.8; O2SAT 88–100
[2025-06-22] MEDS: NALOXONE HCL 0.4 MG/ML AMPUL IV ONE (19:32)
[2025-06-22] MEDS: IV NORMAL SALINE 500 ML IV ONE (19:39)
[2025-06-22] MEDS ORDERED: ERYTHROMYCIN ETHYLSUCC 200 MG/5 ML SUSPENSION 100ML ONE (22:24)
[2025-06-23] VITALS (59 sets, daily range): BP systolic 71–127; BP diastolic 46–89; TEMP 98–99.3; O2SAT 92–100
[2025-06-23 05:16] LABS: PLATELET COUNT (AUTO) 172 K/uL (179-408); RED BLOOD CELL COUNT(AUTO) 3.76 MIL/uL (3.63-4.92); RED CELL DISTRIBUTION WIDTH 17.0 % (12.3-17.7); WHITE BLOOD COUNT (AUTO) 14.8 K/uL (3.8-11.8)
[2025-06-23 05:24] LABS: CREATININE 1.4 mg/dL (0.6-1.3); SODIUM SERUM 140.0 mmol/L (136-145); UREA NITROGEN, BLOOD 44.0 mg/dL (7-18)
[2025-06-23] MEDS: NALOXONE HCL 0.4 MG/ML AMPUL IV PRN (09:38)
[2025-06-23] MEDS: IV NORMAL SALINE 500 ML IV ONE (10:13)
[2025-06-23] MEDS: POTASSIUM CHLORIDE 20 MEQ POWDER PACKET PO ONE (11:03)
[2025-06-23] MEDS: IV LACTATED RINGERS SOLUTION 1,000 ML IV PRN (11:44)
[2025-06-23] MEDS: MAG HYDROX/AL HYDROX/SIMETH 30 ML LIQUID UDC PO PRN (12:55)
[2025-06-23 20:13] LABS: *AMPHETAMINE, URINE NEGATIVE (NEGATIVE); *BARBITURATE, URINE NEGATIVE (NEGATIVE); *BENZODIAZEPINE, URINE NEGATIVE (NEGATIVE); *CANNABINOID, URINE NEGATIVE (NEGATIVE); *COCCAINE, URINE NEGATIVE (NEGATIVE); *OPIATE, URINE NEGATIVE (NEGATIVE); *PHENCYCLIDINE SCREEN,URINE NEGATIVE (NEGATIVE); FENTANYL, URINE POSITIVE (NEGATIVE)
[2025-06-24] VITALS (29 sets, daily range): BP systolic 95–144; BP diastolic 45–114; TEMP 97.8–98.2; O2SAT 96–100
[2025-06-24 06:01] LABS: PLATELET COUNT (AUTO) 153 K/uL (179-408); RED BLOOD CELL COUNT(AUTO) 3.63 MIL/uL (3.63-4.92); RED CELL DISTRIBUTION WIDTH 17.0 % (12.3-17.7); WHITE BLOOD COUNT (AUTO) 13.3 K/uL (3.8-11.8)
[2025-06-24 06:12] LABS: CREATININE 0.9 mg/dL (0.6-1.3); SODIUM SERUM 140.0 mmol/L (136-145); UREA NITROGEN, BLOOD 35.0 mg/dL (7-18)
[2025-06-24] MEDS ORDERED: IPRA3AMP23 IH (13:29)
[2025-06-24] MEDS ORDERED: PRED20TA PO (13:29)
== END 2025-06-24 15:45 | disposition home or self-care (01) | DRG 207 ==
LOC: ER 00:40 → CCU 02:20 → TELE3 06-19 17:55 → MEDSURG3 06-22 08:35 → ICU IN 06-22 19:41 → CCU 06-22 20:50
PROC: 5A09357 Assistance with Respiratory Ventilation, Less than 24 Consecutive Hours, Continuous Positive Airway Pressure (ICD-10-PCS; principal; 2025-06-07)
PROC: 5A1955Z Respiratory Ventilation, Greater than 96 Consecutive Hours (ICD-10-PCS; 2025-06-07)
PROC: 0BH17EZ Insertion of Endotracheal Airway into Trachea, Via Natural or Artificial Opening (ICD-10-PCS; 2025-06-07)
PROC: 05HF33Z Insertion of Infusion Device into Left Cephalic Vein, Percutaneous Approach (ICD-10-PCS; 2025-06-07)
PROC: 0D9670Z Drainage of Stomach with Drainage Device, Via Natural or Artificial Opening (ICD-10-PCS; 2025-06-14)
DX: J45.902 Unspecified asthma with status asthmaticus (principal); J80 Acute respiratory distress syndrome; J15.9 Unspecified bacterial pneumonia; J44.0 Chronic obstructive pulmonary disease with (acute) lower respiratory infection; E87.1 Hypo-osmolality and hyponatremia; K56.7 Ileus, unspecified; S91.001A Unspecified open wound, right ankle, initial encounter; L08.9 Local infection of the skin and subcutaneous tissue, unspecified; Z68.41 Body mass index [BMI] 40.0-44.9, adult; F12.10 Cannabis abuse, uncomplicated; I10 Essential (primary) hypertension; J44.1 Chronic obstructive pulmonary disease with (acute) exacerbation; F11.20 Opioid dependence, uncomplicated; F11.23 Opioid dependence with withdrawal; S91.301A Unspecified open wound, right foot, initial encounter; X58.XXXA Exposure to other specified factors, initial encounter; Y92.89 Other specified places as the place of occurrence of the external cause; E66.01 Morbid (severe) obesity due to excess calories; F17.210 Nicotine dependence, cigarettes, uncomplicated; F14.10 Cocaine abuse, uncomplicated; T40.411A Poisoning by fentanyl or fentanyl analogs, accidental (unintentional), initial encounter; T40.5X1A Poisoning by cocaine, accidental (unintentional), initial encounter; I95.2 Hypotension due to drugs; Y92.230 Patient room in hospital as the place of occurrence of the external cause; R79.1 Abnormal coagulation profile; E87.6 Hypokalemia; D25.9 Leiomyoma of uterus, unspecified; G47.33 Obstructive sleep apnea (adult) (pediatric); Z98.84 Bariatric surgery status; F19.90 Other psychoactive substance use, unspecified, uncomplicated; Z91.040 Latex allergy status; K31.84 Gastroparesis
CPT/HCPCS: 36415; 36600; 70030-TC; 71045; 71275; 74018; 82785; 82803; 83605; 83690; 83735; 84100; 84300; 84443; 84478; 84481; 84484; 84550; 84703; 85018; 85025; 87040; 87070; 87086; 93307; 94002; 94003; 94640; 94660; 94664; 94760; 99082-TC; A4606; A4663; A6213; G0378; J0169; J0360; J0692; J0696; J1100; J1171; J1650; J1956; J2060; J2250; J2312; J2405; J2470; J2765; J2919; J3010; J3373; J3475; J3480; J3490; J3590; J7040; J7050; J7120; J7512; J7614; Q9967